=== PATIENT | female | born 2000 | race Caucasian/White ===

== ENCOUNTER 2021-09-04 06:15 | Inpatient (IN) ==
[2021-09-04] MEDS ORDERED: D5 1/2 NS 1,000 ML 1,000 ML IV ONE (06:38)
[2021-09-04] MEDS ORDERED: PITOCIN ONE (06:38)
[2021-09-04] MEDS ORDERED: BETADINE SOLN ONE (06:38)
[2021-09-04] MEDS ORDERED: D5 LR + PITOCIN 10 UNITS/L 10 UNITS/1,000 ML BAG IV ONE (06:39)
[2021-09-04] MEDS ORDERED: D5 1/2 NS 1,000 mL + PITOCIN 20 UNITS/L IV 20 UNITS/1,000 ML BAG IV ONE (06:39)
--- NOTE | 2021-09-04 07:04 | DR.OB ---
OB Quick Note - Assessment/Plan Assessment/Plan: L&D 09/04/21 at 6:55am S-No complaint. O-Afebrile,VSS HLS=556 with good LTV, +accel, no decel. CTX=none CVX=3cm/50%/-1/VTX AROM with clear fluid. IUPC and FSE placed. A-IUP at 39 1/7 weeks for induction P-Begin pitocin induction Anticipate
[2021-09-04] MEDS ORDERED: PITOCIN IVP ONE (07:20)
[2021-09-04] MEDS ORDERED: MORPHINE SULFATE INJ 2 MG INJ IVP PRN (07:20)
[2021-09-04] MEDS ORDERED: REGLAN INJ 10 MG VIAL IVP PRN (07:20)
[2021-09-04] MEDS ORDERED: D5 1/2 NS 1,000 ML 1,000 ML IV SCH (07:20)
[2021-09-04] MEDS ORDERED: PHENERGAN INJ 25 MG IM PRN ×2 (07:20→12:13)
[2021-09-04] MEDS ORDERED: D5 LR + PITOCIN 10 UNITS/L 10 UNITS/1,000 ML BAG IV PRN (07:20)
[2021-09-04] MEDS ORDERED: NUBAIN INJ 200 MG VIAL MULTIDOSE IVP PRN (07:20)
[2021-09-04] MEDS ORDERED: STADOL INJ IVP PRN (07:21)
[2021-09-04 07:36] LABS: BILIRUBIN,URINE NEGATIVE (NEGATIVE); BLOOD/HEMOGLOBIN,URINE 2+ (NEGATIVE); GLUCOSE, URINE NEGATIVE (NEGATIVE); KETONES,URINE NEGATIVE (NEGATIVE); LEUKOCYTE ESTERASE ,URINE 3+ (NEGATIVE); NITRITES,URINE NEGATIVE (NEGATIVE); PROTEIN,URINE 1+ (NEGATIVE); UROBILINOGEN,URINE NORMAL (NORMAL)
[2021-09-04 07:44] LABS: APPEARANCE,URINE HAZY (CLEAR); COLOR,URINE YELLOW (YELLOW)
[2021-09-04 07:45] LABS: AMORPHOUS SEDIMENT,UR 1+ /HPF (NEGATIVE); BACTERIA,URINE TRACE /HPF (NEGATIVE); RBC,URINE 0-2 /HPF (0-3); SQUAMOUS EPITHELIAL CELL,UR MANY /HPF (NEGATIVE)
[2021-09-04 07:56] LABS: BASOPHILS % (AUTO) 0.2 % (0.2-1.0); EOSINOPHILS # (AUTO) 0.1 x10^3/uL (0.0-0.2); EOSINOPHILS % (AUTO) 1.1 % (0.9-2.9); HEMATOCRIT 27.9 % (36.0-47.0); HEMOGLOBIN 9.2 g/dL (12.0-16.0); LYMPHOCYTES # (AUTO) 2.7 X10^3/uL (1.3-2.9); LYMPHOCYTES % (AUTO) 27.1 % (21.0-51.0); MEAN CORPUSCULAR HEMOGLOBIN 25.4 pg (27.0-34.0); MEAN CORPUSCULAR HGB CONC 32.9 g/dL (33.0-35.0); MEAN CORPUSCULAR VOLUME 77.3 fL (80.0-100.0); MEAN PLATELET VOLUME 7.4 fL (7.4-11.0); MONOCYTES # (AUTO) 0.7 x10^3/uL (0.3-0.8); NEUTROPHILS # (AUTO) 6.5 x10^3/uL (2.2-4.8); NEUTROPHILS % (AUTO) 64.6 % (42.0-75.0); PLATELET COUNT 320 X10^3/uL (150.0-450.0); RED BLOOD COUNT 3.61 X10^6/uL (3.5-5.4)
[2021-09-04 08:01] LABS: ALANINE AMINOTRANSFERASE 18 Units/L (12-78); ALBUMIN 2.4 g/dL (3.4-5.0); ALKALINE PHOSPHATASE 137 Units/L (46-116); ASPARTATE AMINO TRANSFERASE 16 Units/L (15-37); BLOOD UREA NITROGEN 6 mg/dL (7-18); CALCIUM 8.3 mg/dL (8.5-10.1); CARBON DIOXIDE 22.6 mmol/L (21-32); CHLORIDE 105 mmol/L (98-107); COR CA(FOR HYPOALB) 9.6 mg/dL (8.5-10.1); CREATININE 0.58 mg/dL (0.55-1.02); SODIUM 138 mmol/L (136-145); TOTAL PROTEIN 6.3 g/dL (6.4-8.2); eGFR NON BLACK RACES > 60 (>60)
[2021-09-04] MEDS ORDERED: STADOL INJ ONE (08:24)
[2021-09-04] MEDS ORDERED: FENTANYL VIAL INJ 100 mcg ONE (08:25)
[2021-09-04] MEDS ORDERED: LR 1,000 ML IV 1,000 ML IV ONE (08:25)
[2021-09-04] MEDS ORDERED: NAROPIN EPIDURAL 0.2% 100 ML ONE (08:25)
--- NOTE | 2021-09-04 12:13 | DR.OB ---
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 Head delivered over intact perineum. No nuchal cord. Nose and mouth bulb suctioned. Body delivered over intact perineum. Cord clamped x 2 and cut. Infant handed to attendant. Cord sent for gases. Placenta delivered spontaneously / intact / 3 vessel cord. No CVX / vaginal / perineal tears. Viable female infant, VTX/OA, wt=7'1" and 8/9, stable to NBN. Mother stable to RR. FNO=[id number].
[2021-09-04] MEDS: D5 1/2 NS 1,000 ML 1,000 ML with PITOCIN 20 UNITS IV SCH ×4 (12:36→23:42)
[2021-09-04] MEDS ORDERED: ADACEL or BOOSTRIX TDaP VACCINE IM ONE (13:12)
[2021-09-04] MEDS ORDERED: NIX CREME RINSE TOP SCH (13:12)
[2021-09-04] MEDS ORDERED: MILK OF MAGNESIA PO PRN (13:12)
[2021-09-04] MEDS ORDERED: DERMOPLAST PAIN RELIEF SPRAY TOP PRN (13:12)
[2021-09-04] MEDS ORDERED: AMBIEN PO PRN (13:12)
[2021-09-04] MEDS: MOTRIN TAB 800 MG PO PRN ×2 (15:53→23:42)
[2021-09-04] MEDS: FERROUS GLUCONATE PO SCH (17:01)
[2021-09-05 04:57] LABS: HEMATOCRIT 26.9 % (36.0-47.0); HEMOGLOBIN 8.9 g/dL (12.0-16.0)
[2021-09-05] MEDS: FERROUS GLUCONATE PO SCH (06:19)
[2021-09-05] MEDS ORDERED: DEPO-PROVERA CONTRACEPTIVE INJ IM ONE ×2 (07:29→12:52)
[2021-09-05] MEDS ORDERED: PRENATAL PLUS PO SCH (09:00)
[2021-09-05 11:58] VITALS: BP 110/62
== END 2021-09-05 14:25 | disposition home or self-care (01) | DRG 807 ==
LOC: LD 06:15 → MED/SURG 13:13
PROVIDERS: ADMIT Specialist; ATTEND Specialist